=== PATIENT | male | born 1940 | race Caucasian/White ===

== ENCOUNTER → 2017-04-10 10:17 | Outpatient (CLI) | payer MEDICARE, SELFPAY ==
[2016-01-31 06:42] VITALS: BMI 35.2
[2016-02-02 09:43] VITALS: BP 112/59
[2016-02-02 13:53] VITALS: BP 121/72
[2017-04-10 11:17] LABS: PSA,Total- Diagnostic < 0.01 ng/mL (0.0-4.0)
== END ==
PROVIDERS: Family Provider Internal Medicine Infectious Disease; PCP Internal Medicine Infectious Disease; Visit Provider Urology
DX: C61 Malignant neoplasm of prostate (principal)
CPT/HCPCS: 36415; 84153

== ENCOUNTER → 2017-10-16 10:00 | Outpatient (CLI) | payer MEDICARE, SELFPAY ==
[2017-10-16 11:51] LABS: PSA,Total- Diagnostic 0.02 ng/mL (0.0-4.0)
== END ==
PROVIDERS: Family Provider Internal Medicine Infectious Disease; PCP Internal Medicine Infectious Disease; Visit Provider Urology
DX: C61 Malignant neoplasm of prostate (principal)
CPT/HCPCS: 36415; 84153

== ENCOUNTER → 2020-08-24 14:53 | Outpatient (CLI) | payer MEDICARE, SELFPAY ==
--- NOTE | 2020-08-24 14:59 | CT_ITS ---
STUDY: CT RIGHT LOWER EXTREMITY WITHOUT CONTRAST, RIGHT REASON FOR EXAM: Male, 79 years old. Unilateral primary osteoarthritis, right knee TECHNIQUE: Thin slice transaxial CT acquisition was performed through the right hip joint, through the right knee, and through the right ankle with sagittal and coronal 2-D MPR reformatted images saved to the PACS archive. Up to date CT equipment and radiation dosage reduction techniques were employed. COMPARISON: None. FINDINGS: Intrapelvic: Limited evaluation, no acute process. Right lower cavity soft tissues: There is a prominent popliteal cyst. Vasculature: Severe atherosclerosis from the common femoral artery through the popliteal artery into the tibial peroneal arteries with significant risk of stenosis. There is superficial soft tissue edema of the ankle circumferentially. Hip joint: No effusion. Periarticular musculature normal. Moderate DJD, mild joint margin osteophytic lipping, small subcortical cysts of the superior acetabular margin, perhaps minimal joint space narrowing. Knee joint: Moderately joint effusion. Patellofemoral articulation moderate joint margin osteophytic lipping, slender calcifications of the articular cartilage, normal patellar tracking within the trochlear groove. Medial compartment [id number] articulation, articular surface sclerosis without subcortical cystic degenerative changes, moderate joint margin osteophytic lipping. Lateral compartment mild to moderate joint margin osteophytic lipping, meniscal calcifications, mild joint space narrowing. Ankle joint: There are a few very minimal foci of subcortical cystic degeneration of the dome of the talus. No apparent cortical defect. Minimal joint margin osteophytic lipping. No joint effusion. Multiple subtalar joint. CT/Extremity Lower without Contra IMPRESSION: 1. 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 2. Tricompartmental DJD of the knee joint most severe the medial compartment. Knee joint effusion. 3. Mild DJD of the ankle joint. 4. Circumferential superficial soft tissue edema around the ankle. 5. Severe peripheral vascular disease. 6. Prominent popliteal cyst. Electronically Signed: Mahamed Woodson MD at 14:11 EDT Tel , Service support ,
[2020-08-24 17:26] LABS: Hematocrit 46.4 % (40-54); Hemoglobin 14.4 g/dL (13.0-16.5); Mean Corpuscular Hgb 29.9 pg (27.0-32.0); Mean Corpuscular Volume 96.3 fL (80-94); Mean Platelet Vol. 10.2 fl (6.2-12.0); Platelet Count 195 K/mm3 (150-450); RBC Distribution Width CV 13.3 % (11.6-14.6); RBC Distribution Width SD 47.5 fl (35.1-43.9); Red Blood Count 4.82 M/mm3 (4.6-6.2); White Blood Count 9.5 K/mm3 (4.4-11.0)
[2020-08-24 17:45] LABS: Hemoglobin A1c 5.4 % (3.8-5.6)
[2020-08-24 18:00] LABS: Anion Gap 7 (5-15); BUN 23 mg/dL (7-18); BUN/Creat Ratio 26.7 RATIO (10-20); Chloride 102 mmol/L (98-107); Creatinine, Serum 0.86 mg/dL (0.70-1.30); EST Glomerular Filtration Rate 91 mL/min (>60); Est Glom Filt Rate - Afr Amer 110 mL/min (>60); Glucose 84 mg/dL (74-106); Potassium 4.1 mmol/L (3.5-5.1); Sodium Level 137 mmol/L (136-145)
== END ==
PROVIDERS: PCP Internal Medicine; Referring Provider Orthopaedic Surgery; Visit Provider Orthopaedic Surgery
DX: Z01.818 Encounter for other preprocedural examination (principal); M17.11 Unilateral primary osteoarthritis, right knee
CPT/HCPCS: 36415; 73700; 80048; 83036; 85027; 87081

== ENCOUNTER 2020-09-11 16:04 | Observation (INO) | payer MEDICARE, SELFPAY ==
[2016-01-31 06:42] VITALS: BMI 35.2
[2020-09-11] VITALS (17 sets, daily range): BP systolic 91–178; BP diastolic 48–73; PULSE 56–78; RESP 15–18; TEMP 36–37.2; O2SAT 94–100; BMI 35.7
[2020-09-11 07:40] LABS: Bedside Glucose 125 mg/dL (70-110)
[2020-09-11] MEDS: Acetaminophen 500 MG Tablet 1000 MG PO ×3 (07:53→22:58)
[2020-09-11] MEDS: Scopolamine 1mg/72hr Patch 1 PATCH TD (07:54)
[2020-09-11] MEDS: Gabapentin 600 MG Tablet PO (07:54)
[2020-09-11 07:58] LABS: International Normalized Ratio 1.1; Magnesium 1.8 mg/dL (1.6-2.6); Prothrombin Time (Protime)PT. 13.6 SECONDS (11.7-14.9)
[2020-09-11] MEDS: Lactated Ringers 1,000 ML 125 ML IV ×4 (07:59→22:55)
[2020-09-11 08:33] LABS: Partial Thromboplast Time 30.4 Seconds (24.1-36.2)
--- NOTE | 2020-09-11 09:30 | KNEE_PTH ---
PATIENT: CHANDRIKA TINOCO LOC: MS3 U#:[id number] AGE/SX: 79/M ROOM: NH318 RE09/11/[address]: Dr. Mateo Coe DO : 1940 BED: 1 DIS: 09/13/2020 SPEC #: [id number] RECD: 09/11/20 11:27 STATUS: ERIC JONY #: [id number] AKUA: 09/11/20 09:[address]: Mateo Coe DEPT: SURGICAL PATHOLOGY RECD BY: Rina George ENTERED: 09/11/20 11:59 SP TYPE: TOTAL KNEE OTHR DR: Dr. Willie Delgado MD Tissues: Knee, NOS Procedures: Decalcification bone/plaque Surgery Specimen Level IV HEADER OPERATION: ERAS, right total knee replacement robotic arm assist PRE-OP DIAGNOSIS: Right knee osteoarthritis TISSUE SUBMITTED: Right knee bone and tissue MICROSCOPIC DIAGNOSIS Bone and soft tissue of right knee, total knee resection: Severe degenerative joint disease. AM:evangelina 09/18/2020 MICROSCOPIC DESCRIPTION Slides are reviewed. GROSS DESCRIPTION Received is one container designated bone and soft tissue right knee. The specimen consists of multiple fragments of roldan-yellow bone measuring in aggregate 12 x 9.5 x 3.5 cm. No soft tissue is identified. A number of bony fragments contain articular surfaces consistent with tibial plateau and femoral condyle and displaying prominent osteophyte formation, eburnation, and bone erosion. Transportation Solutions Manager sections are submitted in two cassettes after decalcification. / SJ:evangelina 09/11/20 TC:5 CPT: 65075, 85219
[2020-09-11] MEDS: Betamethasone/Betamethasone 30 MG/5 ML Vial (10:59)
[2020-09-11] MEDS: Lidocaine 1% (20 ml mdv) 20 ML Vial (10:59)
[2020-09-11] MEDS: APIXABAN 5 MG TABLET PO (14:14)
[2020-09-11] MEDS: oxyCODONE 5 MG Tablet PO (14:17)
--- NOTE | 2020-09-11 14:36 | OP.PCM_ITS ---
Report of Operation Date of Procedure: 09/11/20 Pre-Operative Diagnosis: OA b/l knees Post-Operative Diagnosis: same Surgery/Procedure Performed:: Right TKR, intra-articular cortisone injection left Description of Surgical Findings:: Report of Operation Date of Procedure: Preoperative Diagnosis: [b/l ] knee primary osteoarthritis Postoperative Diagnosis: [ b/l ] knee primary osteoarthritis Operation: Robotic Assisted Knee Total Arthroplasty, [right ] knee, intra- articular cortisone injection left knee Surgeon: Dr Mateo Coe DO Roll Dough Divider: Ben Wiggins PA-C Anesthesia: spinal Anesthesiologist: Ron Guy M.D. Findings: Stable knee with good patella tracking Specimen(s): Bony cuts Complications: No intraoperative complications Estimated Blood Loss: 20 cc IV Fluids: 1000 c crystalloid Implants Used: 1. Lorena Triathlon press fit CR size 7 femur 2. Lorena Triathlon size 6 tibia 3. 38 mm patella 4. size 9 CS polyethylene Brief History Operative Indications: [ 79 y/o male ] with history of [b/l ] knee osteoarthrosis with radiographic findings with loss of joint space, osteophyte formation and subchondral sclerosis. Failed conservative measures as mentioned in the H&P. Discussion of total knee arthroplasty as well as risk and benefits were discussed with the patient including but not limited to blood loss, DVTs, PEs, neurovascular damage, general risk of anesthesia including loss of life, and stiffness or instability were also discussed with the patient. Patient demonstrated understanding and was able to sign informed consent. Procedure: On the date of procedure, patient's [right ] lower extremity was marked in the preoperative area. The patient was then taken back to the operating room where that patient was placed on the table in the supine position. All bony prominences were identified and well-padded. Anesthesia assumed control of the C-spine and airway throughout the remainder of the procedure. A tourniquet was placed on the [right ] upper thigh and the leg was prepped in a sterile fashion. The surgeon then scrubbed at this time. Upon reentering the room, the [right ] lower extremity was draped in a standard orthopedic fashion. A timeout was then called and everyone agreed upon the side, the site, the procedure to be performed, patient's identity and antibiotics given. Esmarch bandage was used to exsanguinate the extremity and the tourniquet was placed up to 250 mmHg with the knee in flexion. A midline skin incision was made and a sharp dissection was taken down through skin, subcutaneous tissue and fat. The standard medial parapatellar incision was made and the patella was subluxed laterally. An appropriate deep MCL release was done and the fat pad was resected. Our attention was then directed to the patella. The patella was everted and a flat resection was made. The knee was then flexed up and 2 femoral pins were placed inside the incision and 2 tibial pins were placed outside the incision in the medial tibia bicortically. Once this was completed, the 2 checkpoints in the femur and tibia were placed. Knee was then flexed up and the bony landmarks were registered. Once the was completed, the knee taken through range of motion and manually stressed allowing us to plan for an appropriate tibial cut. The robotic arm was brought into the field sterilely and checkpoint and saw were registered. Based on the patient's deformity, the tibial cut was made in [2 degrees varus ]. At this time, the tensioner was then placed in the joint and ligament tension was checked at 90 degrees and full extension. Based on the patient's ligamentous tension, appropriate adjustments were made to the operative plan and ligament releases were done. Once we were happy with our operative plan with balanced flexion and extension gaps, our attention was directed to the femur. The robot was brought into the field sterilely and registered. Posterior condylar cuts, anterior chamfer cuts and anterior cuts were appropriately made for a [size 7 ] femur. When these were completed, the saws were switched out in the distal femoral and posterior chamfer cuts were made. Protecting the soft tissue throughout this time. A [size 6 ] base plate was selected. The knee was flexed to 90 degrees and soft tissues and posterior osteophytes were removed from the joint. 40 cc of the periarticular injection was injected into the posterior medial corner of the joint. The appropriate trials were then placed on the femur and tibia. A trial polyethylene was trialed to ensure proper balancing and stability of the knee. The appropriate tibial internal rotation was then marked with a bovie. Our attention was then directed to the patella. The lug holes were drilled and the patella trial was placed. Patellar tracking was checked and deemed appropriate. Once we were happy, lug holes were drilled for the femur and trial components were removed. The tibia was subluxed and pinned into place and the keel was punched and drilled appropriately. Final components were verified and opened. The wound was copiously irrigated with normal saline. The components were impacted into place with the tibia, femur and finally the patella. The trial poly component was placed and the knee was placed in full extension. The tracking, alignment and balance were verified and a [9 mm CS ] polyethylene component was placed. Once the final components were placed an Irrisept lavage was performed and the wound was copiously irrigated with normal saline solution and the periarticular injection was given. the wound was closed in a layer-shields fashion using #1 vicryl interrupted sutures for the arthrotomy, 2-0 interrupted vicryl suture for the subcuticular layer and nahum for final skin closure. A sterile compressive dressing was then placed. The patient was then awakened from anesthesia, transferred to the [facility] and transferred to the PACU for recovery. Under sterile conditions, the left knee was injected with 4 cc of 1% lidocaine without epinephrine and 2 c of Celestone Soluspan. A band-aid was placed on the injection site. My physician assistant toddler teacher was a vital part of this case. He was important in appropriate retraction during the case, and protection of soft tissues during bony cuts. His intimate knowledge of the case and my steps aided in safe and expedient completion of the procedure as well as appropriate position of the leg during the case. He was also vital in assisting with closure under my direct supervision. Due to the complexity of this case, robotic arm was used to assist in the surgery to improve accuracy and clinical outcomes. Post-op Plan: DVT ppx; ASA 81 mg BID, thigh high compression stockings Follow up: in office in 2 weeks for wound check PT: to start POD #0 at hospital, outpatient PT should be arranged. Preoperative antibiotic: Clindamycin 900 mg IV Mateo Coe DO Surgeon: Mateo Coe office 365 consultant: Ben Wiggins Type of Anesthesia: Spinal Anesthesiologist: Ron Guy Specimen's removed: bone Estimated Blood Loss (mL): 20 cc Fluids Replaced: 1000 cc crystalloid Admit VTE Documentation VTE Present on Admission: No VTE Mechan Device Prophylaxis: SCD's VTE Pharm Prophylaxis ordered?: Yes
[2020-09-11] MEDS: Budesonide Respules 0.5 MG/2 ML AMPUL.NEB. INHALATION (19:17)
[2020-09-11] MEDS: Albuterol 2.5 MG/3 ML VIAL.NEB. INHALATION (19:17)
[2020-09-11] MEDS: Aspirin 81 MG TAB.CHEW PO (22:57)
[2020-09-11] MEDS: Atorvastatin Calcium 10 MG Tablet PO (22:58)
[2020-09-11] MEDS: Montelukast 10 MG Tablet PO (22:58)
[2020-09-11] MEDS: Senna/Docusate Sodium 1 Tablet 2 TABLET PO (22:58)
[2020-09-11] MEDS: Pantoprazole Sodium 40 MG Tablet PO (22:59)
[2020-09-11] MEDS: Metoprolol Tartrate 25 MG Tablet PO (22:59)
[2020-09-11] MEDS: 0.9% Saline Lock 10 ML Syringe IV (23:20)
[2020-09-12] VITALS (14 sets, daily range): BP systolic 120–141; BP diastolic 56–100; PULSE 53–66; RESP 12–18; TEMP 36.4–37.2; O2SAT 91–99; BMI 35.7
[2020-09-12] MEDS: Acetaminophen 500 MG Tablet 1000 MG PO ×3 (06:18→21:47)
[2020-09-12] MEDS: 0.9% Saline Lock 10 ML Syringe IV ×2 (06:19→21:50)
[2020-09-12] MEDS: oxyCODONE 5 MG Tablet PO ×2 (06:21→19:14)
[2020-09-12 06:37] LABS: Hematocrit 37.4 % (40-54); Hemoglobin 11.8 g/dL (13.0-16.5); Mean Corp Hgb Conc 31.6 g/dL (32-36); Mean Corpuscular Hgb 30.2 pg (27.0-32.0); Mean Corpuscular Volume 95.7 fL (80-94); Mean Platelet Vol. 9.7 fl (6.2-12.0); Platelet Count 163 K/mm3 (150-450); RBC Distribution Width CV 13.1 % (11.6-14.6); RBC Distribution Width SD 46.2 fl (35.1-43.9); Red Blood Count 3.91 M/mm3 (4.6-6.2)
[2020-09-12 07:10] LABS: Anion Gap 8 (5-15); BUN 21 mg/dL (7-18); BUN/Creat Ratio 24.6 RATIO (10-20); Calcium,Total 8.3 mg/dL (8.5-10.1); Chloride 97 mmol/L (98-107); Creatinine, Serum 0.85 mg/dL (0.70-1.30); EST Glomerular Filtration Rate 92 mL/min (>60); Est Glom Filt Rate - Afr Amer 111 mL/min (>60); Estimated Creatinine Clearance 78.61 ml/min; Glucose 130 mg/dL (74-106); Potassium 4.6 mmol/L (3.5-5.1); Sodium Level 133 mmol/L (136-145)
[2020-09-12] MEDS: Albuterol 2.5 MG/3 ML VIAL.NEB. INHALATION ×3 (07:11→19:35)
[2020-09-12] MEDS: Budesonide Respules 0.5 MG/2 ML AMPUL.NEB. INHALATION ×2 (07:11→19:36)
[2020-09-12] MEDS: Allopurinol 100 MG Tablet PO (07:40)
--- NOTE | 2020-09-12 08:06 | PCM.PN.ORT ---
Objective Data Objective Data Patient sitting up in bed receiving a breathing treatment. Patient states his pain is been very well managed. Patient denies any chest pain, shortness of breath, nausea vomiting, or calf pain. Patient states that he would like to be discharged to a nursing facility, as his is unable to help care for him. Patient at this time has no other complaints. Per nursing patient had some postoperative bleeding, that his dressing had become saturated after he ambulated for the first time after surgery. Vital Signs: Vital Signs Temp Pulse Resp BP Pulse Ox 98.0 F 53 L 12 135/63 H 98 09/12/20 04:19 09/12/20 07:15 09/12/20 07:15 09/12/20 04:19 09/12/20 07:15 Oxygen Flow Rate (L/min) 2 Oxygen Delivery Method Nasal Cannula Weight: 119.5 kg Body Mass Index (BMI) 35.7 Intake & Output: Intake and Output for Last 24 Hours 09/10/20 09/11/20 09/12/20 23:59 23:59 23:59 Intake Total 3410.75 / 3810.75 1645.5 / 1645.5 Output Total 600 / 600 Balance 3410.75 / 3810.75 1045.5 / 1045.5 Lab / Micro Data Result Diagrams: 09/12/20 06:22 09/12/20 06:22 Labs: Laboratory Results - last 24 hr 09/11/20 07:35: APTT 30.4 09/12/20 06:22: WBC 16.0 H, RBC 3.91 L, Hgb 11.8 L, Hct 37.4 L, MCV 95.7 H, MCH 30.2, MCHC 31.6 L, RDW Std Deviation 46.2 H, RDW Coeff of Surendra 13.1, Plt Count 163, MPV 9.7 09/12/20 06:22: Sodium 133 L, Potassium 4.6, Chloride 97 L, Carbon Dioxide 28.0, Anion Gap 8, BUN 21 H, Creatinine 0.85, Estim Creat Clear Calc 78.61, Est GFR (MDRD) Af Amer 111, Est GFR (MDRD) Non-Af 92, BUN/Creatinine Ratio 24.6 H, Glucose 130 H, Calcium 8.3 L Physical Exam Narrative Exam I found patient lying comfortably in bed. Patient in no respiratory distress. Patient speaking in full sentences. Patient's vitals and labs were noted in the medical record. Patient's dressing had been removed, the incision appeared to be intact with no active bleeding. I was able to flex the knee to approximately 35 degrees and no blood was appreciated coming from the incision. The 2 array stab wounds are clean dry and intact with the sutures in place. Patient had no calf tenderness. Patient neurovascular is otherwise intact. Const oriented x3 Eyes PERRL Neuro CN's II-XII intact bilaterally Psych mental status grossly normal Assessment & Plan Assessment/Plan (1) Status post total right knee replacement not using cement: PLAN: 1. Continue all pain medications as prescribed 2. Continue physical therapy, weight-bear as tolerated 3. Aspirin 81 mg 1 p.o. every 12 hours x30 days for postop DVT prophylaxis 4. Encourage incentive spirometry 5. Discharge to ECF when clear with insurance
[2020-09-12] MEDS: Metoprolol Tartrate 25 MG Tablet PO ×2 (09:56→21:48)
[2020-09-12] MEDS: hydroCHLOROthiazide 12.5mg 12.5 MG PO (09:56)
[2020-09-12] MEDS: Aspirin 81 MG TAB.CHEW PO ×2 (09:56→21:48)
[2020-09-12] MEDS: Pantoprazole Sodium 40 MG Tablet PO ×2 (09:56→21:48)
[2020-09-12] MEDS: APIXABAN 5 MG TABLET PO (09:56)
[2020-09-12] MEDS: Senna/Docusate Sodium 1 Tablet 2 TABLET PO ×2 (09:57→21:47)
--- NOTE | 2020-09-12 10:18 | CASEMGMT ---
Social Work Assessment Referral Date: 09/12/2020 Date of Assessment: 09/30/2020 Reason for consult: SNF placement Informant: PA Personal Status: SW met with pt to complete initial assessment. SW introduced self and role at [facility]. Pt is alert and orientated and answers questions appropriately. Living Arrangements: Pt lives in a split level home with his . Pt states there are five steps to enter from the front porch and four steps to enter to the living room. Pt states he has railings next to the steps. DME: Pt states he has a walker PCP: Willie Delgado Pharmacy: [facility] delivery or [facility] in [place] ADLS: Previously independent Transportation: Pt states he still drives Advanced Directives: Pt states he has completed both documents, states his son J Luis Cross is his HCPOA Substance Abuse Hx: Pt denied Mental Health Hx: Pt denied HHC: Pt states [facility] will send an RN in to evaluate pt in the home. SNF: Pt denied SW spoke with pt about discharge plans. Pt requesting SNF. Patient was provided a list of SNF providers including quality and resource use data and consistent with the patient?s preferred geographic region, medical needs, and insurance network. Pt states preferred provider is [facility]. SW explained referral process and that pt will need pre-cert. Pt states understanding. ABDOULAYE placed a call to Elise at [facility], states she has already spoken with pt. Elise states they should be able to accept pt and will submit for pre-cert once referral is received. ABDOULAYE faxed referral to [facility]. Plan: [facility] pending pre-cert Sherice Motley SENIOR ANDROID SOFTWARE ENGINEER, OUTREACH AND EDUCATION SOCIAL WORKER
--- NOTE | 2020-09-12 13:45 | CASEMGMT ---
RN EUN NOTE: Intro role of CM to patient and who is in room w/pt. [facility] form explained re: Observation status for treatment of right total knee arthroplasty . Explained hospitalization will be paid per his insurance policy for Outpatient billing and condition will continue to be evaluated for Inpt necessity. Also let pt/ know that [facility] sends paper in the billing packet with their phone number if questions arise. Discussed Pharmacy section of [facility] form and self administered medication guideline. Pt/ verbalize understanding and they do not have further questions. Form signed, copy made and placed in chart, and original given to them. Lima HARDING RN CM
--- NOTE | 2020-09-12 13:57 | CPS ---
wears 2.5L A HS
--- NOTE | 2020-09-12 15:06 | CASEMGMT ---
Social Work Note SW received call from Elise at [facility] stating pre-cert has been submitted. Pt will need COVID test on day of discharge. Plan: [facility] pending pre-cert Sherice Motley FIELD REVIEWER, PUMP ROOM OPERATOR
[2020-09-12] MEDS: Montelukast 10 MG Tablet PO (21:46)
[2020-09-12] MEDS: Atorvastatin Calcium 10 MG Tablet PO (21:48)
[2020-09-13] VITALS (9 sets, daily range): BP systolic 106–142; BP diastolic 56–76; PULSE 54–88; RESP 16–20; TEMP 36.6–36.9; O2SAT 91–98
[2020-09-13] MEDS: 0.9% Saline Lock 10 ML Syringe IV (00:10)
[2020-09-13] MEDS: Acetaminophen 500 MG Tablet 1000 MG PO ×2 (06:01→14:13)
[2020-09-13] MEDS: Albuterol 2.5 MG/3 ML VIAL.NEB. INHALATION ×2 (07:23→14:33)
[2020-09-13] MEDS: Budesonide Respules 0.5 MG/2 ML AMPUL.NEB. INHALATION (07:23)
[2020-09-13] MEDS: Pantoprazole Sodium 40 MG Tablet PO (07:53)
[2020-09-13] MEDS: Aspirin 81 MG TAB.CHEW PO (07:53)
[2020-09-13] MEDS: Metoprolol Tartrate 25 MG Tablet PO (07:53)
[2020-09-13] MEDS: APIXABAN 5 MG TABLET PO (07:54)
[2020-09-13] MEDS: Lisinopril 10 MG Tablet PO (07:54)
[2020-09-13] MEDS: Allopurinol 100 MG Tablet PO (07:54)
[2020-09-13] MEDS: hydroCHLOROthiazide 12.5mg 12.5 MG PO (07:54)
[2020-09-13] MEDS: Senna/Docusate Sodium 1 Tablet 2 TABLET PO (07:55)
[2020-09-13] MEDS: oxyCODONE 5 MG Tablet PO ×2 (07:58→12:27)
--- NOTE | 2020-09-13 10:12 | CASEMGMT ---
Addendum entered by Sherice Motley 09/13/20 12:24: SW faxed updated PT/OT to [facility]. Original Note: Social Work Note SW received call from Elise at [facility] stating pre-cert is still pending. Plan: [facility] pending pre-cert Sherice Motley X RAY EQUIPMENT SERVICER, SPECIAL PROCEDURE TECH
--- NOTE | 2020-09-13 14:02 | CASEMGMT ---
Addendum entered by Sherice Motley 09/13/20 16:01: SW faxed COVID test/tool to Elise at [facility]. Addendum entered by Sherice Motley 09/13/20 15:12: SW faxed completed discharge paperwork to Elise at [facility] including transfer to extended care facility, signed medication list, any scripts, and PAS/RR. Original in SNF folder and copy on pt's chart. SW placed a call to Elise at [facility] and updated her on transportation time. RN updated. COVID test and tool will be faxed to [facility] once completed. Plan: [facility] today with pt's son transporting today. Addendum entered by Sherice Motley 09/13/20 14:41: SW in to speak with pt. SW updated pt that pre-cert was obtained, pt to discharge to [facility] today. Pt states his son will be at [facility] in about 1.5 hours to transport pt. SW placed a call to Elise at [facility] and updated her on transportation time. SW to fax discharge paperwork once completed. SW completed PAS/RR in [facility]. Original Note: Social Work Note SW received message from Elise at [facility] stating pre-cert was obtained, pt can discharge today. PA updated. ABDOULAYE placed a call to Elise at [facility] and left message that pt will discharge to [facility] today if medically cleared. Plan: [facility] today Sherice Motley AUTO CRANE DRIVER, LITHOPRESS OPERATOR
--- NOTE | 2020-09-13 14:15 | PN.ORTHO_ITS ---
Objective Data Objective Data Patient sitting at bedside. Patient states pain is been well managed, does feels more painful today than yesterday. Patient denies chest pain, shortness of breath, calf pain, nausea vomiting. Patient states he is ready for discharge to [facility] for continued postoperative therapy. Nursing reports the patient developed a fracture blister to the medial aspect of the distal incision area. This area has been dressed by the wound management nurse it is covered. Vital Signs: Vital Signs Temp Pulse Resp BP Pulse Ox 98.2 F 56 L 16 106/56 L 95 09/13/20 11:33 09/13/20 11:33 09/13/20 11:33 09/13/20 11:33 09/13/20 11:33 Oxygen Flow Rate (L/min) 2.5 Oxygen Delivery Method Room Air Weight: 119.5 kg Body Mass Index (BMI) 35.7 Intake & Output: Intake and Output for Last 24 Hours 09/11/20 09/12/20 09/13/20 23:59 23:59 23:59 Intake Total 3410.75 / 3810.75 3695.5 / 4045.5 800 / 800 Output Total 600 / 1100 500 / 500 Balance 3410.75 / 3810.75 3095.5 / 2945.5 300 / 300 Lab / Micro Data Result Diagrams: 09/12/20 06:22 09/12/20 06:22 Physical Exam Narrative Patient sitting comfortably in a chair next to his bed. Patient in no respiratory distress, speaking in full sentences. Vital signs and labs all reviewed noted in the medical record. The incision is clean dry intact. Patient by nursing has developed a proximately 3 cm fracture blister to the medial aspect of the proximal tibial region. Patient's right thigh is tender to palpation but soft. Patient has no calf tenderness. Patient has good strong posterior tibial dorsalis pedis pulses. Neurovascular is intact. The dressings are clean dry intact. Const alert and oriented x3 Eyes PERRL Resp Effort and Inspection: able to speak in complete sentences Neuro CN's II-XII intact bilaterally Assessment & Plan Assessment/Plan (1) Status post total right knee replacement not using cement: PLAN: 1. Continue all pain medications as prescribed 2. Continue physical therapy, weight-bear as tolerated 3. Continue Eliquis as prescribed preoperatively for postop DVT prophylaxis 4. Encourage incentive spirometry 5. Discharge to [facility] today 6. Shower September 15, 2020 7. Remove nahum September 23, 2020 8. Follow-up with Dr. Coe as scheduled, see pink sheet
--- NOTE | 2020-09-13 14:24 | PCM.DC ---
Discharge Instructions Follow Up Care Test Results: Test results from this visit will be discussed in further detail at your follow-up appointment, if applicable. Discharge Plan Admission Admit Date/Time: 09/11/20 16:04 Primary Reason for Your Visit: Right total knee replacement Attending Provider: Mateo Coe Primary Care Provider: Willie Delgado Discharge Orders/Prescriptions Prescriptions: New acetaminophen 500 mg Tablet 1,000 mg PO Q8 Qty: 90 RF: 0 oxycodone 5 mg Tablet 5 - 10 mg PO Q4H PRN PRN (Reason: Pain Score 4-10) 7 Days Qty: 84 RF: 0 Continued fluticasone propion-salmeterol [Advair Diskus] 1 PUFF inhaler 1 puff inhalation BID RF: 0 allopurinol 100 MG tablet 100 mg PO DAILYCM RF: 0 omeprazole 40 MG capsule,delayed release(DR/EC) 40 mg PO BID RF: 0 montelukast [Singulair] 10 MG tablet 10 mg PO QHS RF: 0 lisinopril-hydrochlorothiazide [Zestoretic] 1 TABLET tablet 1 tab PO DAILY RF: 0 Eliquis 5 MG tablet 5 mg PO DAILY RF: 0 docusate sodium [DOK] 100 MG capsule 100 mg PO BID PRN PRN (Reason: Constipation) Qty: 20 RF: 0 metoprolol tartrate 25 MG tablet 25 mg PO BID Qty: 60 RF: 0 rosuvastatin 5 mg tablet 5 mg PO DAILY RF: 0 Referrals / Follow Up: Willie Delgado MD [Primary Care Provider] - Disposition Disposition (needs filled in before D/C Order can be placed): [facility]
--- NOTE | 2020-09-13 14:52 | PCM.TXEXTCAR ---
Diet 09/11/20 15:41 Diet: Regular - General Wound(s) RIGHT KNEE: Wound Type: Surgical Incision LEFT KNEE: Wound Type: INJECTION right upper lower leg: Wound Type: blister Therapies Weight Bearing: Weight bearing as tolerated Problem/Diagnosis (1) Status post total right knee replacement not using cement: Status: Acute (2) Chronic atrial fibrillation: Status: Chronic Allergies/Procedures Done in Hospital Allergies Penicillins Allergy (Verified 09/11/20 07:16) Swelling Sulfa (Sulfonamide Antibiotics) Allergy (Verified 09/11/20 07:16) Swelling Type of Care/Length of Stay Estimated LOS: Convalescent Care Less Than 30 days Type of Care Needed: Skilled Rehab Potential: Good Prognosis: Good Additional Orders/Day of Discharge Day of Discharge: 09/13/20 Discharge Plan Admission Admit Date/Time: 09/11/20 16:04 Primary Reason for Your Visit: Right total knee replacement Attending Provider: Mateo Coe Primary Care Provider: Willie Delgado Discharge Orders/Prescriptions Prescriptions: New acetaminophen 500 mg Tablet 1,000 mg PO Q8 Qty: 90 RF: 0 oxycodone 5 mg Tablet 5 - 10 mg PO Q4H PRN PRN (Reason: Pain Score 4-10) 7 Days Qty: 84 RF: 0 Continued fluticasone propion-salmeterol [Advair Diskus] 1 PUFF inhaler 1 puff inhalation BID RF: 0 allopurinol 100 MG tablet 100 mg PO DAILYCM RF: 0 omeprazole 40 MG capsule,delayed release(DR/EC) 40 mg PO BID RF: 0 montelukast [Singulair] 10 MG tablet 10 mg PO QHS RF: 0 lisinopril-hydrochlorothiazide [Zestoretic] 1 TABLET tablet 1 tab PO DAILY RF: 0 Eliquis 5 MG tablet 5 mg PO DAILY RF: 0 docusate sodium [DOK] 100 MG capsule 100 mg PO BID PRN PRN (Reason: Constipation) Qty: 20 RF: 0 metoprolol tartrate 25 MG tablet 25 mg PO BID Qty: 60 RF: 0 rosuvastatin 5 mg tablet 5 mg PO DAILY RF: 0 Referrals / Follow Up: Willie Delgado MD [Primary Care Provider] - Disposition Disposition (needs filled in before D/C Order can be placed): [facility]
--- NOTE | 2020-09-13 15:33 | PHA.DC.MR ---
Pharmacy Service has performed discharge medication reconciliation for this patient. The patient's discharge medication list was reviewed for discrepancies and discrepancies were resolved. Home Medications Eliquis 5 mg PO DAILY 10/20/15 allopurinol 100 mg PO DAILYCM 10/20/15 fluticasone propion-salmeterol [Advair Diskus] 1 puff INHALATION BID 10/20/15 lisinopril-hydrochlorothiazide [Zestoretic] 1 tab PO DAILY 10/20/15 montelukast [Singulair] 10 mg PO QHS 10/20/15 omeprazole 40 mg PO BID 10/20/15 docusate sodium [DOK] 100 mg PO BID PRN PRN #20 capsule 02/02/16 metoprolol tartrate 25 mg PO BID #60 tablet 02/02/16 rosuvastatin 5 mg PO DAILY 08/28/20 acetaminophen 1,000 mg PO Q8 #90 tab 09/13/20 oxycodone 5 - 10 mg PO Q4H PRN PRN 7 Days #84 tab 09/13/20
== END 2020-09-13 17:25 | disposition skilled nursing facility (03) ==
LOC: SDC 16:32 → MS3 16:32
PROVIDERS: Anesthesiology; Admitting Provider Orthopaedic Surgery; PCP Internal Medicine; Referring Provider Orthopaedic Surgery; Visit Provider Orthopaedic Surgery
PROC: (CPT 20610; principal; 2020-09-11 09:00)
DX: M17.0 Bilateral primary osteoarthritis of knee (principal); J44.9 Chronic obstructive pulmonary disease, unspecified; I48.91 Unspecified atrial fibrillation; E78.00 Pure hypercholesterolemia, unspecified; I10 Essential (primary) hypertension; G47.30 Sleep apnea, unspecified; K21.9 Gastro-esophageal reflux disease without esophagitis; Z95.1 Presence of aortocoronary bypass graft; Z79.899 Other long term (current) drug therapy
CPT/HCPCS: 01402; 20610; 27447; 64447; S2900; 36415; 80048; 82962; 83735; 85027; 85610; 85730; 87426; 88305; 88311; 94640; 94762; 96361; 96365; 96366; 97110; 97116; 97162; 97166; 97530; 97535; 99218; 99251; C1776; J7120; A4216; G0378; G0379; G0463; J0702